=== PATIENT | male | born 1950 ===

== ENCOUNTER 2021-02-23 20:13 | Emergency (ER) | payer MEDICARE, OTHER ==
--- NOTE | 2021-02-23 20:31 | ED Physician Documentation ---
PD HPI MAJOR TRAUMA - Stated complaint Stated Complaint: HEAD VS TREE - Chief complaint Chief Complaint: Trauma Hd/Nk - History obtained from History obtained from: Patient - Additional information Additional information: He was working outside with a hard hat on, a tree branch measuring about 6 inches around fell down and then hit him on the top of the head and he has a feeling of "having my erwin run." Also some left-sided neck pain especially if he turns his head. No loss of consciousness. No vomiting. He is not anticoagulated although he does take occasional Eliquis when he travels but has not taken in about a month. Review of Systems Constitutional: reports: Reviewed and negative Eyes: reports: Reviewed and negative Ears: reports: Reviewed and negative Nose: reports: Reviewed and negative PD PAST MEDICAL HISTORY - Present Medications Home Medications: Ambulatory Orders Medication Instructions Recorded Confirmed Atorvastatin Calcium 40 mg PO HS 02/23/21 02/23/21 Omeprazole 40 mg PO DAILY 02/23/21 02/23/21 - Allergies Allergies/Adverse Reactions: Allergies Allergy/AdvReac Type Severity Reaction Status Date / Time Sulfa (Sulfonamide Allergy Unknown Verified 02/23/21 20:18 Antibiotics) PD ED PE NORMAL - Vitals Vital signs reviewed: Yes - General General: Alert and oriented X 3, No acute distress - HEENT HEENT: PERRL, EOMI - Neck Neck: No bony TTP (v mild mid cspine) - Back Back: No spinal TTP - Extremities Extremities: No deformity, No tenderness to palpate, Normal ROM s pain - Neuro Neuro: Alert and oriented X 3, No motor deficit, No sensory deficit, Normal speech Results - Vitals Vitals: Vital Signs - 24 hr 02/23/21 02/23/21 20:23 20:25 Temperature 36.4 C L Heart Rate 63 73 Respiratory 18 16 Rate Blood Pressure 177/81 H 177/103 H O2 Saturation 100 100 Oxygen O2 Source Room air - Rads (name of study) CT Head and Cspine Radiology: EMP read contemporaneously (NAD) Departure - Departure Disposition: 01 Home, Self Care Clinical Impression: Injury of head and neck Qualifiers: Encounter type: initial encounter Qualified Code(s): S09.90XA - Unspecified injury of head, initial encounter; S19.9XXA - Unspecified injury of neck, initial encounter Condition: Good Record reviewed to determine appropriate education?: Yes Instructions: ED Head Injury Closed Comments: CAT scan of the head and cervical spine were normal without evidence of serious injury. Follow-up with your doctor in a week if not better, return for new or worsening symptoms. Tylenol or ibuprofen as needed for pain.
--- OUTSIDE RECORDS SUMMARY | 2021-02-23 21:23 | EXTERNAL MEDICAL SUMMARY RPT | Continuity of Care Document ---
:1950 Demographics Phone Unavailable Preferred Language Unknown Marital Status Unknown Mormonism Affiliation Unknown Race Unknown Ethnic Group Unknown Author Organization [facility] Address [address] [phone] Phone Care Team Providers Name Role Phone XOCHILT GRIFFIN Unavailable Unavailable Problems date description facility [id number] Supraventricular tachycardia [facility] [id number] Mixed hyperlipidemia [facility] [id number] Encounter for screening for malignant n eoplasm of prostate [facility] [id number] Encounter for general adult medical exa mination without [facility]HDE abnormal findings [id number] Dyspnea, unspecified [facility] [id number] 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
--- NOTE | 2021-02-23 21:26 | CT Report ---
PROCEDURE: CERVICAL SPINE WO INDICATIONS: head inj TECHNIQUE: Noncontrast 3 mm thick sections acquired from the skull base to the T4 level. Sagittal and coronal r eformats were then constructed. For radiation dose reduction, the following was used: automated exp osure control, adjustment of mA and/or kV according to patient size. COMPARISON: None. FINDINGS: Image quality: Excellent. Bones: No fractures or dislocations. Visualized superior ribs are intact. No fracture found. Note is made of bridging osteophytes anteriorly between C2-C3 and C3-C4. These osteophytes show no sign of disruption. Soft tissues: Prevertebral soft tissues are normal in thickness. No paravertebral hematomas. No ap ical pneumothoraces. IMPRESSION: Degenerative disc disease as discussed above, but no fracture or traumatic subluxation is seen. Reviewed by: Jasson Edmond MD on 02/23/2021 9:25 PM PDT Approved by: Jasson Edmond MD on 02/23/2021 9:25 PM PDT Station ID: [id number]
--- NOTE | 2021-02-23 21:27 | CT Report ---
PROCEDURE: HEAD WO INDICATIONS: head inj TECHNIQUE: Noncontrast 4.5 mm thick angled axial sections acquired from the foramen magnum to the vertex. For r adiation dose reduction, the following was used: automated exposure control, adjustment of mA and/or kV according to patient size. COMPARISON: None. FINDINGS: Image quality: Excellent. CSF spaces: Basal cisterns are patent. No extra-axial fluid collections. Ventricles are normal in size and shape. Brain: No midline shift. No intracranial masses or hemorrhage. James-white matter interface is norm al. Skull and face: Calvarium and visualized facial bones are intact, without suspicious lesions. Sinuses: Visualized sinuses and mastoids are clear. IMPRESSION: No trauma found. Reviewed by: Jasson Edmond MD on 02/23/2021 9:25 PM PDT Approved by: Jasson Edmond MD on 02/23/2021 9:25 PM PDT Station ID: [id number]
[2021-02-23 21:39] VITALS: BP 148/87
== END 2021-02-23 21:40 | disposition home or self-care (01) ==
LOC: ED 20:13
DX: S09.90XA Unspecified injury of head, initial encounter (principal); S19.9XXA Unspecified injury of neck, initial encounter; W20.8XXA Other cause of strike by thrown, projected or falling object, initial encounter; Y93.H9 Activity, other involving exterior property and land maintenance, building and construction; M50.31 Other cervical disc degeneration, high cervical region
CPT/HCPCS: 99282; 99284

== ENCOUNTER 2024-05-16 08:00 | Outpatient (CLI) | payer MEDICARE, OTHER ==
--- NOTE | 2024-05-16 13:48 | XRAY Report ---
PROCEDURE: Chest 2V INDICATIONS: CHEST CONGESTION TECHNIQUE: 2 views of the chest were acquired. COMPARISON: None. FINDINGS: Surgical changes and devices: None. Lungs and pleura: No pleural effusions or pneumothorax. Lungs are clear. Mediastinum: Mediastinal contours appear normal. Heart size is normal. Bones and chest wall: No suspicious bony lesions. Overlying soft tissues appear unremarkable. IMPRESSION: No acute cardiopulmonary process. Reviewed by: Roque Manuel MD on 05/16/2024 1:47 PM PDT Approved by: Roque Manuel MD on 05/16/2024 1:47 PM PDT Station ID: [id number]
== END 2024-05-16 23:59 | disposition home or self-care (01) ==
LOC: DI.S 08:00
PROVIDERS: ATTEND Physician Assistant Medical
DX: R09.89 Other specified symptoms and signs involving the circulatory and respiratory systems (principal)